=== PATIENT | female | born 1980 | race Caucasian/White ===

== ENCOUNTER 2024-01-12 17:25 | Emergency (ER) | payer MEDICAID ==
[~2024-01-12] VITALS: Ht 162.6 cm; Wt 97.7 kg
[~2024-01-12 17:25] MED LIST: AMLO2.5T45 PO; APIX5TAB MT; ASPI-1406 PO; CLOP-31 PO; LIP40 PO
[2024-01-12 17:43] VITALS: O2SAT 99
[2024-01-12 17:52] LABS: HEMATOCRIT. 30.9 % (36.0-48.0); HEMOGLOBIN. 9.3 g/dL (12.0-16.0); MEAN CORPUSCULAR HEMOGLOBIN 20.4 pg (28.0-32.0); MEAN CORPUSCULAR VOLUME 67.8 fL (81.0-99.0); MEAN PLATELET VOLUME 8.7 fl (7.4-10.4); PLATELET 259 x1000/uL (130-400); RED BLOOD CELL COUNT 4.56 mill/uL (4.2-5.4); RED CELL DISTRIBUTION WIDTH 16.3 % (11.6-14.6); WHITE BLOOD COUNT 14.8 x1000/uL (4.5-11.0)
[2024-01-12 18:06] LABS: CARBON DIOXIDE 23 mEq/L (21-32); CHLORIDE 107 mEq/L (98-107); POTASSIUM 4.3 mEq/L (3.5-5.1); SODIUM 140 mEq/L (136-145)
[2024-01-12 18:07] LABS: CALCIUM 9.1 mg/dL (8.7-10.4)
[2024-01-12 18:08] LABS: INR 1.1; PROTHROMBIN TIME 12.2 sec (9.6-11.0)
[2024-01-12 18:11] LABS: CREATININE 0.6 mg/dL (0.6-1.0)
[2024-01-12 18:12] LABS: GLUCOSE 144 mg/dL (70-105); HCG SCREEN NEGATIVE; UREA NITROGEN BLOOD 20 mg/dL (9-23)
[2024-01-12 18:13] LABS: ALANINE AMINOTRANSFERASE 21 IU/L (10-49); ALBUMIN 4.6 g/dL (3.2-4.8); AMMONIA < 17 uMol/L (<32); ASPARTATE AMINOTRANSFERASE 26 IU/L (<34)
[2024-01-12 18:14] LABS: BILIRUBIN DIRECT 0.2 mg/dL (<=3.0); BILIRUBIN TOTAL 0.5 mg/dL (0.1-1.0); ETHANOL BLOOD < 10 mg/dL (<10); PROTEIN TOTAL 7.1 g/dL (6.0-8.3); TROPONIN I HIGH SENSITIVITY 45 ng/L (3.0-34)
[2024-01-12 18:51] LABS: DIFFERENTIAL COMMENT 1
[2024-01-12 19:41] VITALS: TEMP 98.2
[2024-01-12 20:00] LABS: HYPOCHROMASIA 1+; MICROCYTOSIS 1+; PLATELET ESTIMATE NORMAL
[2024-01-12 20:40] VITALS: BP 164/82; PULSE 89; RESP 14
[2024-01-12] MEDS ORDERED: IOHEXOL-350 100 ML BOTTLE ONE (23:26)
== END 2024-01-12 20:50 | disposition short-term general hospital (02) ==
LOC: ER 17:25
DX: R41.82 Altered mental status, unspecified (principal); I10 Essential (primary) hypertension; Z88.6 Allergy status to analgesic agent
CPT/HCPCS: 80076; 80048; 80320; 82140; 84703; 83880; 85025; 85610; 84484; 36415; 71045; 70496; 70498; 70450; 93005; 99291; Q9967; G0480

== ENCOUNTER 2024-03-09 11:38 | Inpatient (IN) | payer MEDICAID ==
[~2024-03-09] VITALS: Ht 154.9 cm; Wt 73.0 kg
[2024-03-09 11:54] VITALS: O2SAT 100
[2024-03-09 12:05] LABS: HEMATOCRIT. 32.8 % (36.0-48.0); HEMOGLOBIN. 10.5 g/dL (12.0-16.0); MEAN CORPUSCULAR HEMOGLOBIN 25.5 pg (28.0-32.0); MEAN CORPUSCULAR HGB CONC 32.1 g/dL (31.0-37.0); MEAN CORPUSCULAR VOLUME 79.7 fL (81.0-99.0); MEAN PLATELET VOLUME 8.4 fl (7.4-10.4); PLATELET 115 x1000/uL (130-400); RED BLOOD CELL COUNT 4.11 mill/uL (4.2-5.4); RED CELL DISTRIBUTION WIDTH 18.9 % (11.6-14.6)
[2024-03-09 12:09] LABS: DIFFERENTIAL COMMENT 1
[2024-03-09 12:14] LABS: CHLORIDE 102 mEq/L (98-107); SODIUM 136 mEq/L (136-145)
[2024-03-09 12:15] LABS: CALCIUM 8.4 mg/dL (8.7-10.4); CARBON DIOXIDE 26 mEq/L (21-32)
[2024-03-09 12:20] LABS: GLUCOSE 152 mg/dL (70-105); UREA NITROGEN BLOOD 9 mg/dL (9-23)
[2024-03-09 12:23] LABS: ANISOCYTOSIS 2+; MICROCYTOSIS 1+; PLATELET ESTIMATE SLIGHTLY DECREASED
[2024-03-09 12:42] LABS: CREATININE 1.4 mg/dL (0.6-1.0)
[2024-03-09 12:48] LABS: POTASSIUM 2.6 mEq/L (3.5-5.1); TROPONIN I HIGH SENSITIVITY 560 ng/L (3.0-34)
[2024-03-09 12:57] LABS: ALANINE AMINOTRANSFERASE < 7 IU/L (10-49); ALBUMIN 3.7 g/dL (3.2-4.8); ASPARTATE AMINOTRANSFERASE 26 IU/L (<34); BILIRUBIN DIRECT 0.2 mg/dL (<=3.0); BILIRUBIN TOTAL 0.8 mg/dL (0.1-1.0); PROTEIN TOTAL 6.6 g/dL (6.0-8.3)
[2024-03-09] MEDS: POTASSIUM CHLORIDE 20MEQ/PACKET PO ONE (14:30)
[2024-03-09 14:55] LABS: HCG SCREEN NEGATIVE
[2024-03-09] MEDS: KCL 20MEQ/100ML PREMIX 100 ML IV ONE (15:05)
[2024-03-09] MEDS: ENOXAPARIN 80MG/0.8ML SYR SUBCUT ONE (15:05)
[2024-03-09 15:17] LABS: TROPONIN I HIGH SENSITIVITY 2772 ng/L (3.0-34)
[2024-03-09 17:06] LABS: INR 1.4; PROTHROMBIN TIME 14.8 sec (9.6-11.0)
[2024-03-09 18:00] VITALS: BP 119/85; PULSE 86; RESP 24; O2SAT 96
[2024-03-09] MEDS ORDERED: DIPHENHYDRAMINE 50MG/ML VIAL IV PRN (18:00)
[2024-03-09] MEDS ORDERED: IPRATROPIUM/ALBUTEROL 0.5-3(2.5)MG/3ML NEB HHN PRN (18:00)
[2024-03-09] MEDS ORDERED: IOHEXOL-350 100 ML BOTTLE ONE (18:41)
[2024-03-09] MEDS: ONDANSETRON HCL 4MG/2ML INJ IV PRN (18:50)
[2024-03-09] MEDS: MORPHINE SULFATE 2 MG/ML INJ (NOT FOR IM USE) IV PRN (18:50)
[2024-03-09 20:00] VITALS: BP 170/85; PULSE 98; RESP 25; TEMP 36.78072; O2SAT 96
[2024-03-09] MEDS: CLONIDINE 0.1MG TABLET PO PRN (20:24)
[2024-03-09 22:00] VITALS: BP 153/82; PULSE 88; RESP 21; O2SAT 93
[2024-03-09 22:52] VITALS: BP 170/85; PULSE 89; RESP 25; TEMP 36.8072
[2024-03-09] MEDS ORDERED: ATOR-2 PO (23:20)
[2024-03-09] MEDS ORDERED: CEFT2VIA13 IV (23:20)
[2024-03-09] MEDS ORDERED: VANC125C11 IV (23:20)
[2024-03-09] MEDS ORDERED: ENOX40SY27 SQ (23:20)
[2024-03-09] MEDS ORDERED: AMI2 PO (23:20)
[2024-03-09] MEDS ORDERED: FURO20TA4 PO (23:20)
[2024-03-09] MEDS ORDERED: COR3 PO (23:20)
[2024-03-10] VITALS (12 sets, daily range): BP systolic 136–164; BP diastolic 63–88; PULSE 84–97; RESP 14–28; TEMP 36.28068–37.11408; O2SAT 93–97
[2024-03-10 00:29] LABS: TROPONIN I HIGH SENSITIVITY 11793 ng/L (3.0-34)
[2024-03-10] MEDS: ENOXAPARIN 80MG/0.8ML SYR SUBCUT SCH ×2 (04:27→20:11)
[2024-03-10 05:24] LABS: POTASSIUM 3.2 mEq/L (3.5-5.1)
[2024-03-10 05:26] LABS: CALCIUM 8.5 mg/dL (8.7-10.4)
[2024-03-10 05:47] LABS: CREATININE 1.1 mg/dL (0.6-1.0)
[2024-03-10 06:38] LABS: EOSINOPHILS % 1.5 % (0.0-5.0); HEMOGLOBIN. 10.5 g/dL (12.0-16.0); LYMPHOCYTES % 7.6 % (20.0-50.0); MEAN CORPUSCULAR HEMOGLOBIN 25.5 pg (28.0-32.0); MEAN CORPUSCULAR HGB CONC 31.9 g/dL (31.0-37.0); MEAN CORPUSCULAR VOLUME 80.1 fL (81.0-99.0); MEAN PLATELET VOLUME 8.9 fl (7.4-10.4); MONOCYTES % 6.3 % (2.0-8.0); NEUTROPHILS % 83.6 % (40.0-76.0); PLATELET 140 x1000/uL (130-400); RED BLOOD CELL COUNT 4.12 mill/uL (4.2-5.4); RED CELL DISTRIBUTION WIDTH 18.7 % (11.6-14.6); WHITE BLOOD COUNT 13.6 x1000/uL (4.5-11.0)
[2024-03-10 10:34] LABS: TROPONIN I HIGH SENSITIVITY 15436 ng/L (3.0-34)
[2024-03-10] MEDS: MAGNESIUM 2 G PREMIX 50 ML IV NR (13:38)
[2024-03-10] MEDS: POTASSIUM CHLORIDE 20MEQ TABLET SR PO NR (13:39)
[2024-03-10] MEDS: ASPIRIN 81MG EC TABLET PO SCH (13:39)
[2024-03-10] MEDS: LOSARTAN 25 MG TABLET PO SCH (13:40)
[2024-03-10 15:20] LABS: IRON 32 ug/dL (50-170)
[2024-03-10 15:23] LABS: TOTAL IRON BINDING CAPACITY 212 ug/dl (250-425)
[2024-03-10] MEDS ORDERED: NALOXONE HCL 0.4MG/ML VIAL IV PRN (15:45)
[2024-03-10] MEDS: AMIODARONE 200MG TABLET PO SCH (16:15)
[2024-03-10 17:53] LABS: CLARITY URINE CLOUDY (CLEAR); COLOR URINE YELLOW (YELLOW); GLUCOSE URINE NEGATIVE (NEGATIVE); KETONES URINE TRACE (NEGATIVE); LEUKOCYTE ESTERASE URINE TRACE (NEGATIVE); NITRITE URINE NEGATIVE (NEGATIVE); OCCULT BLOOD URINE NEGATIVE (NEGATIVE); PH URINE 6.5 (4.5-8.0); PROTEIN URINE NEGATIVE (NEGATIVE); SPECIFIC GRAVITY URINE 1.012 (1.005-1.030); UROBILINOGEN URINE 0.2 E.U./dL (0.2-1.0)
[2024-03-10 18:04] LABS: BACTERIA URINE TRACE; RBC URINE NONE SEEN /hpf (0-2); SQUAMOUS EPITHELIAL CELL URINE 2+ /lpf (RARE/1+); WBC URINE 0-2 /hpf (0-2)
[2024-03-10] MEDS: AMLODIPINE 2.5MG TABLET PO SCH (21:24)
[2024-03-11] VITALS (9 sets, daily range): BP systolic 106–144; BP diastolic 70–89; PULSE 88–96; RESP 17–28; TEMP 36.114–36.3918; O2SAT 94–100
[2024-03-11 05:26] LABS: BASOPHILS % 0.8 % (0.0-2.0); EOSINOPHILS % 0.7 % (0.0-5.0); HEMATOCRIT. 32.7 % (36.0-48.0); HEMOGLOBIN. 10.3 g/dL (12.0-16.0); LYMPHOCYTES % 7.6 % (20.0-50.0); MEAN CORPUSCULAR HEMOGLOBIN 25.4 pg (28.0-32.0); MEAN CORPUSCULAR HGB CONC 31.5 g/dL (31.0-37.0); MEAN CORPUSCULAR VOLUME 80.6 fL (81.0-99.0); MEAN PLATELET VOLUME 8.4 fl (7.4-10.4); MONOCYTES % 6.8 % (2.0-8.0); NEUTROPHILS % 84.1 % (40.0-76.0); PLATELET 168 x1000/uL (130-400); RED BLOOD CELL COUNT 4.06 mill/uL (4.2-5.4); RED CELL DISTRIBUTION WIDTH 18.9 % (11.6-14.6); WHITE BLOOD COUNT 14.2 x1000/uL (4.5-11.0)
[2024-03-11 05:34] LABS: CARBON DIOXIDE 27 mEq/L (21-32); CHLORIDE 101 mEq/L (98-107); POTASSIUM 3.1 mEq/L (3.5-5.1); SODIUM 134 mEq/L (136-145)
[2024-03-11 05:35] LABS: CALCIUM 8.7 mg/dL (8.7-10.4)
[2024-03-11 05:39] LABS: CREATININE 1.1 mg/dL (0.6-1.0); GLUCOSE 89 mg/dL (70-105)
[2024-03-11 05:40] LABS: UREA NITROGEN BLOOD 8 mg/dL (9-23)
[2024-03-11 05:41] LABS: ALANINE AMINOTRANSFERASE 8 IU/L (10-49); ALBUMIN 3.5 g/dL (3.2-4.8); ASPARTATE AMINOTRANSFERASE 57 IU/L (<34)
[2024-03-11 05:42] LABS: BILIRUBIN TOTAL 0.8 mg/dL (0.1-1.0); PROTEIN TOTAL 6.2 g/dL (6.0-8.3)
[2024-03-11 05:44] LABS: THYROID STIMULATING HORMONE 4.66 uIU/mL (0.55-4.78)
[2024-03-11 06:30] LABS: TROPONIN I HIGH SENSITIVITY 10415 ng/L (3.0-34)
[2024-03-11] MEDS: LIDOCAINE 5% PATCH TOP SCH (09:15)
[2024-03-11] MEDS: CEFTRIAXONE 2GM/50ML 50 ML IV SCH (10:58)
[2024-03-11] MEDS: POTASSIUM CHLORIDE 20MEQ TABLET SR PO NR (11:59)
[2024-03-11] MEDS: SODIUM CHLORIDE 0.9% 1,000 ML IV SCH (13:04)
[2024-03-11] MEDS ORDERED: ENOXAPARIN 80MG/0.8ML SYR SUBCUT SCH (18:00)
[2024-03-15 19:09] LABS: ANA IFA Negative (.)
== END 2024-03-11 17:30 | disposition left against medical advice (07) | DRG 134 ==
LOC: ER 11:49 → 5EST 15:24 → EDBEDREQ 15:26 → EDBEDREQTM 15:26
PROVIDERS: ADMIT Internal Medicine; ATTEND Internal Medicine
DX: I26.99 Other pulmonary embolism without acute cor pulmonale (principal); D68.59 Other primary thrombophilia; I21.A1 Myocardial infarction type 2; D69.6 Thrombocytopenia, unspecified; I13.0 Hypertensive heart and chronic kidney disease with heart failure and stage 1 through stage 4 chronic kidney disease, or unspecified chronic kidney disease; E87.1 Hypo-osmolality and hyponatremia; I50.20 Unspecified systolic (congestive) heart failure; D50.9 Iron deficiency anemia, unspecified; E78.00 Pure hypercholesterolemia, unspecified; E83.42 Hypomagnesemia; E87.6 Hypokalemia; I25.10 Atherosclerotic heart disease of native coronary artery without angina pectoris; I27.21 Secondary pulmonary arterial hypertension; I35.1 Nonrheumatic aortic (valve) insufficiency; I73.9 Peripheral vascular disease, unspecified; K80.20 Calculus of gallbladder without cholecystitis without obstruction; N17.9 Acute kidney failure, unspecified; I82.432 Acute embolism and thrombosis of left popliteal vein; I82.411 Acute embolism and thrombosis of right femoral vein; N18.9 Chronic kidney disease, unspecified; Z79.01 Long term (current) use of anticoagulants; Z85.028 Personal history of other malignant neoplasm of stomach; Z86.73 Personal history of transient ischemic attack (TIA), and cerebral infarction without residual deficits; Z88.6 Allergy status to analgesic agent; Z95.2 Presence of prosthetic heart valve; Z79.2 Long term (current) use of antibiotics; Z53.29 Procedure and treatment not carried out because of patient's decision for other reasons
CPT/HCPCS: 36415; 71045; 71275; 76770; 80048; 80053; 80076; 81003; 82728; 82962; 83540; 83550; 83735; 83880; 84145; 84443; 84484; 84703; 85025; 85379; 86256; 93005; 93306; 93923; 93970; 99291; J0696; J1650; J2270; J2405; J3475; J3480; J7030; Q9967